=== PATIENT | female | born 1945 | race Two or more races ===

== ENCOUNTER 2021-12-29 11:49 | Emergency (ER) | payer OTHER ==
[~2021-12-29] VITALS: Ht 157.5 cm; Wt 124.3 kg
[2021-12-29 14:28] LABS: Basophils # (auto) 0 10 ^3/uL (0-0.2); Basophils % (auto) 0.8 % (0.0-2.0); Eosinophils # (auto) 0 10 ^3/uL (0-0.8); Eosinophils % (auto) 0.2 % (0.0-7.0); Hematocrit 30.8 % (36.0-46.0); Hemoglobin 10.1 g/dL (12.2-16.2); Lymphocytes # (auto) 0.7 10 ^3/uL (0.4-5.4); Lymphocytes % (auto) 12.3 % (10.0-50.0); Mean Corpuscular Hemoglobin 28.7 pg (28.0-32.0); Mean Corpuscular Hgb Conc. 32.7 g/dL (32.0-36.0); Mean Corpuscular Volume 87.6 fL (80.0-100.0); Monocytes # (auto) 0.3 10 ^3/uL (0-1.3); Monocytes % (auto) 5.1 % (0.0-12.0); Neutrophils # (auto) 4.8 10 ^3/uL (1.6-8.6); Neutrophils % (auto) 81.6 % (37.0-80.0); Nucleated Red Blood Cells % 0.1 %; Red Blood Cells 3.51 10^6/uL (4.0-5.20); White Blood Cell 5.8 10^3/uL (4.4-10.8)
[2021-12-29] MEDS ORDERED: cloNIDine HCL 0.1 MG TAB PO ONE (15:00)
[2021-12-29 15:09] LABS: Albumin 2.3 g/dL (3.4-5.0); Calcium 8.3 mg/dL (8.5-10.1); Potassium 5.4 mmol/L (3.5-5.1)
[2021-12-29 15:15] LABS: Bilirubin, Total 0.4 mg/dL (0.2-1.0); Total Protein 6.1 g/dL (6.4-8.2)
[2021-12-29 15:18] VITALS: BP 187/56
[2021-12-29] MEDS ORDERED: ENOXAPARIN SOD 120 MG/0.8 ML SYRINGE SC ONE (16:00)
[2021-12-29] MEDS: ALBUTEROL SULF 2.5 MG/0.5ML(0.5%) NEB SOLN NEB ONE ×2 (16:12→16:33)
[2021-12-29] MEDS ORDERED: DEXTROSE (50%) 50ML SYRG IV ONE (16:15)
[2021-12-29] MEDS ORDERED: SODIUM ZIRCONIUM CYCL 10 GM PAK PO ONE (16:15)
[2021-12-29] MEDS ORDERED: InsuLIN REG 1unit/0.01ml Soln (100units/ml) IV ONE (16:15)
[2021-12-29] MEDS ORDERED: CALCIUM GLUC 1,000mg/50ml-NS 50 ML IV ONE (16:15)
[2021-12-29] MEDS ORDERED: FUROSEMIDE 20 MG/2 ML VIAL IV ONE (16:15)
[2021-12-29] MEDS ORDERED: SODIUM BICARBONATE 8.4% INJ 50ML SYRINGE IV ONE (16:15)
== END 2021-12-29 16:20 | disposition left against medical advice (07) ==
LOC: ER 11:49
DX: I10 Essential (primary) hypertension (principal); R77.8 Other specified abnormalities of plasma proteins; E87.5 Hyperkalemia; E43 Unspecified severe protein-calorie malnutrition; Z68.43 Body mass index [BMI] 50.0-59.9, adult; E11.9 Type 2 diabetes mellitus without complications
CPT/HCPCS: 36415; 71045; 80053; 84484; 85025; 93005

== ENCOUNTER 2025-07-02 20:14 | Inpatient (IN) | payer OTHER ==
[~2025-07-02] VITALS: Ht 152.4 cm; Wt 113.0 kg
--- NOTE | 2025-07-02 20:47 | ED.PDOC ---
GI ASSESSMENT HPI Comments Patient is a severely morbidly obese 80 year old female ARNOLDA presenting to the ED with chief complaint of GI bleed. Patient reports that she started to experience blood in her stools with associated rectal bleeding since a few hours ago today. EMS relays that the patient was found to be hypoglycemic on scene at 49, but when given oral glucose it improved to 79. Patient's BG is now 61 in the ED. Patient denies any abdominal pain, dizziness, fever, chills, N/V/D, headache, or chest pain. Patient appears to be in poor overall health and has a history of significant COPD. Patient utilizes 2-4 L of O2 at home. Chief Complaint: GI Bleed Time Seen by MD: 20:45 Primary Care Provider: BERTHA Reviewed Notes: Nurses Notes, Swaging Machine Operator Notes, Medications, Allergies Allergies: Coded Allergies: Codeine (Verified Allergy, Unknown, 12/29/21) Lisinopril (Verified Allergy, Unknown, 12/29/21) Information Source: Patient, Emergency Med Personnel Mode of Arrival: EMS Timing: Hours Duration: Since onset Prehospital treatment: None Quality: None Vomitus: None Stool: Blood Streaked Severity: Moderate Recent: None Recent Hx of: None Pain Location: None Modifying Factors: Nothing Associated sign and symptoms: Blood in Stool Past Medical History PAST MEDICAL HISTORY: CHF, COPD, DM, ESRD, HTN Surgical History: Denies all surgeries ACQUISITIONS LOGISTICS ANALYST History: No Pertinent ACQUISITIONS LOGISTICS ANALYST History Family History Family History: Reviewed,noncontributory to illness Social History Smoker: Non-Smoker Alcohol: Denies ETOH Use Drugs: Denies Drug Use Lives In: Home Constitutional: denies: chills, diaphoresis, fatigue, fever, malaise, sweats, weakness, others EENTM: denies: blurred vision, double vision, ear bleeding, ear discharge, ear drainage, ear pain, ear ringing, eye pain, eye redness, hearing loss, mouth pain, mouth swelling, nasal discharge, nose bleeding, nose congestion, nose pain, photophobia, tearing, throat pain, throat swelling, voice changes, others Respiratory: reports: shortness of breath; denies: cough, hemoptysis, orthopnea, SOB at rest, SOB with excertion, stridor, wheezing, others Cardiovascular: denies: chest pain, dizzy spells, diaphoresis, Dyspnea on exert ion, edema, irregular heart beat, left arm pain, lightheadedness, palpitations, PND, syncope, others Gastrointestinal: reports: blood streaked bowels, rectal bleeding; denies: abdomen distended, abdominal pain, constipated, diarrhea, dysphagia, difficulty swallowing, hematemesis, melena, nausea, poor appetite, poor fluid intake, rectal pain, vomiting, others Genitourinary: denies: abnormal vagina bleeding, burning, dyspareunia, dysuria, flank pain, frequency, hematuria, incontinence, pain, , vagina discharge, urgency, others Neurological: denies: dizziness, fainting, headache, left sided numbness, left sided weakness, numbness, paresthesia, pre-existing deficit, right sided numbness, right sided weakness, seizure, speech problems, tingling, tremors, weakness, others Musculoskeletal: denies: back pain, gout, joint pain, joint swelling, muscle pain, muscle stiffness, neck pain, others Integumetry: denies: bruises, change in color, change in hair/nails, dryness, laceration, lesions, lumps, rash, wounds, others Allergic/Immunocompromised: denies: Difficulty Healing, Frequent Infections, Hives, Itching, others Hematologic/Lymphatic: denies: anemia, blood clots, easy bleeding, easy bruising, swollen glands, others Endocrine: denies: excessive hunger, excessive sweating, excessive thirst, excessive urination, flushing, intolerance to cold, intolerance to heat, unexplained weight gain, unexplained weight loss, others Psychiatric: denies: anxiety, bipolar disorder, depression, hopeless, panic disorder, schizophrenia, sleepless, suicidal, others All Other Systems: Reviewed and Negative Physical Exam General Appearance: Moderate Distress (Xdys-ne-ivmmwngk distress due to some shortness a breath and anxiety related to her rectal bleeding concerns. Patient denied any definitive pain.), Obese HEENT: Normal ENT Inspection, Pharynx Normal, TMs Normal Neck: Full Range of Motion, Non-Tender, Normal, Normal Inspection Respiratory: Chest Non-Tender, Other (Patchy rhonchi appreciated globally throughout bilateral lung rondon.) Cardiovascular: No JVD, No Murmur, Normal Peripheral Pulses, Regular Rate/Rhythm Breast Exam: Deferred Gastrointestinal: Non Tender, Other (No definitive pain on palpation. Difficult to assess due to body habitus.) Genitalia: Deferred Pelvic: Deferred Rectal: Deferred Extremities: Other (Bilateral 3+ pitting edema noted on lower extremities.) Neurologic: Alert Cerebellar Function: NOT DONE Reflexes: NOT DONE Skin: Dry, Normal Color, Warm Lymphatic: No Adenopathy Was a procedure done? Was a procedure done?: No GI differential Dx Differential Diagnosis: Other (Sepsis, electrolyte abnormality, CHF, COPD, rectal bleed, anemia, GI bleed) X-Ray, Labs, Meds, VS Vital Signs Date Time Temp Pulse Resp B/P (MAP) Pulse Ox O2 Delivery O2 Flow Rate FiO2 07/03/25 01:18 98.5 62 20 152/31 (71) 98 98.5 07/02/25 22:30 98.5 62 21 147/35 (72) 93 98.5 07/02/25 22:25 147/35 07/02/25 20:54 98.9 62 22 168/44 (85) 95 98.9 07/02/25 20:54 22 95 Nasal Cannula* 3 32 07/02/25 20:16 97.6 86 16 133/72 98 97.6 Lab Test 07/03/25 00:04 07/02/25 21:45 07/02/25 20:50 Range/Units POC Glucose 94 70-106 mg/dl Troponin I High Sensitivity 14 14 </=34 ng/L White Blood Count 7.7 4.4-10.8 10^3/uL Red Blood Count 2.55 L 4.0-5.20 10^6/uL Hemoglobin 7.9 L 12.2-16.2 g/dL Hematocrit 25.0 L 36.0-46.0 % Mean Corpuscular Volume 98.1 80.0-100.0 fL Mean Corpuscular Hemoglobin 31.1 28.0-32.0 pg Mean Corpuscular Hemoglobin Concent 31.7 L 32.0-36.0 g/dL Red Cell Distribution Width 16.4 H 11.8-14.3 % Platelet Count 227 140-450 10^3/uL Mean Platelet Volume 9.2 6.9-10.8 fL Neutrophils (%) (Auto) 84.5 H 37.0-80.0 % Lymphocytes (%) (Auto) 3.2 L 10.0-50.0 % Monocytes (%) (Auto) 7.2 0.0-12.0 % Eosinophils (%) (Auto) 4.6 0.0-7.0 % Basophils (%) (Auto) 0.5 0.0-2.0 % Neutrophils # (Auto) 6.5 1.6-8.6 10 ^3/uL Lymphocytes # (Auto) 0.2 L 0.4-5.4 10 ^3/uL Monocytes # (Auto) 0.6 0-1.3 10 ^3/uL Eosinophils # (Auto) 0.4 0-0.8 10 ^3/uL Basophils # (Auto) 0 0-0.2 10 ^3/uL Nucleated Red Blood Cells 0.0 % Prothrombin Time 11.9 H 9.3-11.8 sec Prothrombin Time INR 1.14 0.9-1.15 Activated Partial Thromboplast Time 29.3 24.5-34.5 SEC D-Dimer, Quantitative 3.98 H 0.0-0.49 mg/L FEU Sodium Level 144 136-145 mmol/L Potassium Level 4.1 3.5-5.1 mmol/L Chloride Level 102 98-107 mmol/L Carbon Dioxide Level 32 H 20-31 mmol/L Anion Gap 10 5-15 Blood Urea Nitrogen 59 H 9-23 mg/dL Creatinine 2.15 H 0.550-1.02 mg/dL Glomerular Filtration Rate Calc 23 >90 mL/min BUN/Creatinine Ratio 27.4 H 10.0-20.0 Serum Glucose 105 74-106 mg/dL Calcium Level 8.3 L 8.7-10.4 mg/dL B-Type Natriuretic Peptide 597.56 0-100 pg/mL Current Medications Medications (Trade) Dose Ordered Sig/Fawad Route Start Time Stop Time Status Last Admin Dextrose/Sodium Chloride 1,000 ml @ 150 mls/hr Q6H40M ONCE IV 07/02/25 20:30 07/03/25 03:09 07/02/25 22:25 Furosemide (Lasix Injection) 40 mg ONCE ONCE IV 07/02/25 22:15 07/02/25 22:16 DC 07/02/25 22:25 X-Ray, Labs, Meds, VS Comment All available studies were evaluated by me personally. Serum laboratories revealed a significant anemia, what appears to be acute on chronic renal c oncerns as well as a CHF exacerbation. Urine was pending at time of this note. This patient is a [facility] patient and therefore, [facility] will be contacted for transfer to their facility for inpatient evaluation and management. Spoke with the Dr. [place] at [facility] and advised him of initial patient complaint as well as EMS discussions related to blood sugar, imaging and laboratory fi ndings. He agreed to accept the patient is a transfer. Authorization number [id number]. [facility] returned the call to this facility due to capacity concerns at all other sites. They asked if we could accept the patient. We agreed to manage the patient. Time of 1ST Reevaluation: 22:15 Reevaluation 1ST: Improved Consultation: PCP Patient Education/Counseling: Diagnosis, Treatment Family Education/Counseling: Diagnosis, Treatment, No Family Present SEPSIS Sepsis Screen Date sepsis recognized/suspect: Jul 02, 2025 Time Sepsis recognized/suspect: 2015 Recent Procedure: No On Antibiotic Therapy: No Respiratory Rate >20: No Heart Rate >90: No Temp<36 C (96.8 F) or >38.3 C: No SBP <90 or MAP <65 mmHG: No New Acute Mental Status Change: No Is the patient on CPAP, BIPAP,: No Physician Orders Urinalysis (07/02/25 20:25) Heplock Iv (07/02/25 20:25) Electrocardigram (07/02/25 20:25) D5w/Sod Chl 0.45% (D5w 1/2ns) (07/02/25 20:30) Insert Lawrence Catheter QSHIFT (07/02/25 22:09) Imaging Transfer Request (07/02/25 22:27) Vital Signs Date Time Temp Pulse Resp B/P (MAP) Pulse Ox O2 Delivery O2 Flow Rate FiO2 07/03/25 01:18 98.5 62 20 152/31 (71) 98 98.5 07/02/25 22:30 98.5 62 21 147/35 (72) 93 98.5 07/02/25 22:25 147/35 07/02/25 20:54 98.9 62 22 168/44 (85) 95 98.9 07/02/25 20:54 22 95 Nasal Cannula* 3 32 07/02/25 20:16 97.6 86 16 133/72 98 97.6 Laboratory Tests Test 07/02/25 20:50 White Blood Count 7.7 10^3/uL (4.4-10.8) Medications Medications Dose Ordered Sig/Fawad Route Start Time Stop Time Status Last Admin Dose Admin Dextrose/Sodium Chloride 1,000 ml @ 150 mls/hr Q6H40M ONCE IV 07/02/25 20:30 07/03/25 03:09 07/02/25 22:25 Furosemide 40 mg ONCE ONCE IV 07/02/25 22:15 07/02/25 22:16 DC 07/02/25 22:25 Departure 1 Departure Time of Disposition: 22:15 Impression: Primary Impression: Rectal bleed Additional Impressions: Anemia Acute exacerbation of CHF (congestive heart failure) Ctdxj-fs-wzqontf kidney injury Disposition: 02 SHORT TERM HOSPITAL Condition: Fair Discharged With: Self Critical Care Note Critical Care Time?: No Stability Stability form required: No Heart Score Heart Score: Heart Score Response (Comments) Value History N/A 0 EKG N/A 0 Age N/A 0 Risk Factors N/A 0 Troponin N/A 0 Total 0 I personally scribed for RENATE LAM PAC ([email or web address]) on 07/02/25 at 20:47. Electronically submitted by Kai Adan ([email or web address]). RENATE LAM PAC Jul 02, 2025 20:47
[2025-07-02 20:54] VITALS: RESP 22; O2SAT 95
[2025-07-02 21:12] LABS: Hemoglobin 7.9 g/dL (12.2-16.2)
[2025-07-02 21:14] LABS: Hematocrit 25.0 % (36.0-46.0); Mean Corpuscular Hemoglobin 31.1 pg (28.0-32.0); Mean Corpuscular Volume 98.1 fL (80.0-100.0); Nucleated Red Blood Cells % 0.0 %
[2025-07-02 21:16] LABS: Chloride 102 mmol/L (98-107); Potassium 4.1 mmol/L (3.5-5.1); Sodium 144 mmol/L (136-145)
[2025-07-02 21:17] LABS: Anion Gap 10 (5-15)
[2025-07-02 21:22] LABS: Glucose 105 mg/dL (74-106)
[2025-07-02 21:23] LABS: BUN/Creatinine Ratio 27.4 (10.0-20.0)
[2025-07-02 21:30] LABS: Blood Urea Nitrogen 59 mg/dL (9-23); Calcium 8.3 mg/dL (8.7-10.4); Carbon Dioxide 32 mmol/L (20-31)
[2025-07-02 21:46] LABS: INR 1.14 (0.9-1.15); Partial Thromboplastin Time 29.3 SEC (24.5-34.5); Prothrombin Time 11.9 sec (9.3-11.8)
[2025-07-02] MEDS: D5W/SOD CHL 0.45% 1,000 ML IV ONE (22:25)
[2025-07-02] MEDS: FUROSEMIDE 40 MG/4 ML VIAL IV ONE (22:25)
[2025-07-03] VITALS (22 sets, daily range): BP systolic 98–166; BP diastolic 29–47; PULSE 58–72; RESP 11–28; TEMP 97.6–98.5; O2SAT 84–100
[2025-07-03] MEDS ORDERED: ONDANSETRON HCL 4 MG/2 ML VIAL IV PRN (02:30)
[2025-07-03] MEDS ORDERED: ALBUTEROL SULF 2.5 MG/0.5ML(0.5%) NEB SOLN NEB PRN (02:30)
[2025-07-03] MEDS ORDERED: DOCUSATE SOD 100 MG CAP PO PRN (02:30)
[2025-07-03] MEDS ORDERED: ACETAMINOPHEN 325 MG TAB PO PRN (02:30)
[2025-07-03] MEDS ORDERED: DEXTROSE (50%) 50ML SYRG IV PRN (02:30)
[2025-07-03] MEDS ORDERED: IPRATROPIUM BROM 0.5 MG/2.5ML INH SOL NEB PRN (02:30)
[2025-07-03 03:33] LABS: Hematocrit 19.7 % (36.0-46.0); Mean Corpuscular Hemoglobin 30.5 pg (28.0-32.0); Mean Corpuscular Volume 100.0 fL (80.0-100.0); Nucleated Red Blood Cells % 0.0 %
[2025-07-03 03:44] LABS: Hemoglobin 6.0 g/dL (12.2-16.2)
--- NOTE | 2025-07-03 03:49 | DVHHP2 ---
History of Present Illness Reason for Visit: Rectal bleed History of Present Illness The patient is a 80-year-old female with past medical history of COPD, CHF, diabetes mellitus, end-stage renal disease, and hypertension who presented to [facility] ED with complaint of GI bleed. Patient reports that she started to experience blood in her stools with associated rectal bleeding few hours ago today. Patient was seen and evaluated in the ED, laboratory data shows WBC 7.7, hemoglobin 7.9, hematocrit 23.0, platelets 227, sodium 144, potassium 4.1, BUN 59, creatinine 2.15, glucose 105, calcium 8.3, troponin 14, BNP 597.56, D-dimer 3.98, blood pressure 152/35, heart rate 62, temperature 98.5 F, O2 saturation 98% on oxygen. Please see medication orders section in the computer. On my assessment, patient denied chest pain, no headache, dizziness, diaphoresis, shortness of breath, no abdominal pain, diarrhea, nausea, vomiting, fever, no chills. Patient was admitted for further evaluation and medical management. Past Medical History CHF, COPD, DM, ESRD, HTN Past Surgical History Denies all surgeries Family History Reviewed, noncontributory to the management of this case. Past Social History The patient lives at home, denies smoking, alcohol or illicit drugs abuse. Review of Systems Constitutional: Yes: Weakness; No: Fever, Chills, Sweats, Malaise, Other Eyes: No: Pain, Vision change, Conjunctivae inflammation, Eyelid inflammation, Other, Redness ENT: No: Ear pain, Ear discharge, Nose pain, Nose discharge, Nose congestion, Mouth pain, Mouth swelling, Throat pain, Throat swelling, Other Respiratory: Shortness of breath; No: Cough, Dry, SOB with excertion, Wheezing, Hemoptysis, Pleuritic Pain, Sputum, Wheezing, Other Cardiovascular: No: Chest Pain, Palpitations, Orthopnea, Paroxysmal Noc. Dyspnea, Edema, Lt Headedness, Other Gastrointestinal: Melena, Other (Blood streak bowel, rectal bleeding); No: Nausea, Vomiting, Abdominal Pain, Diarrhea, Constipation, Hematochezia Genitourinary: No Dysuria, No Frequency, No Incontinence, No Hematuria, No Retention, No Other Musculoskeletal: No: other, neck pain, shoulder pain, arm pain, back pain, hand pain, leg pain, foot pain Skin: No: Rash, Lesions, Jaundice, Bruising, Other Neurological: No: Weakness, Numbness, Incoordination, Change in speech, Confusion, Seizures, Other Allergies: Coded Allergies: Codeine (Verified Allergy, Unknown, 12/29/21) Lisinopril (Verified Allergy, Unknown, 12/29/21) Medications Current Medications Medications Dose Ordered Sig/Fawad Route Start Time Stop Time Status Last Admin Dose Admin Furosemide 20 mg DAILY IV 07/03/25 10:00 Carvedilol 3.125 mg Q12HR PO 07/03/25 10:00 Atorvastatin Calcium 10 mg HS PO 07/03/25 22:00 Albuterol 2.5 mg Q4HPRN PRN NEB 07/03/25 02:30 Ipratropium [place] 0.5 mg Q4HPRN PRN NEB 07/03/25 02:30 Hydralazine HCl 10 mg Q6HP PRN IV 07/03/25 02:30 Diagnostic Test (Pha) 1 strip ACHS 07/03/25 07:00 Insulin Human Regular ACHS SC 07/03/25 07:00 Dextrose 50 ml UD PRN IV 07/03/25 02:30 Sodium Chloride 10 ml Q8HR IV 07/03/25 06:00 Ondansetron HCl 4 mg Q4HP PRN IV 07/03/25 02:30 Docusate Sodium 100 mg BIDPRN PRN PO 07/03/25 02:30 Acetaminophen 650 mg Q6HP PRN PO 07/03/25 02:30 Exam Vital Signs Vital Signs Date Time Temp Pulse Resp B/P (MAP) Pulse Ox O2 Delivery O2 Flow Rate FiO2 07/03/25 02:53 62 18 152/31 98 3.0 32 07/03/25 01:18 98.5 98.5 07/02/25 20:54 Nasal Cannula* General Appearance: Alert, Oriented X3, Cooperative, No acute distress HEENT: Atraumatic, PERRLA, EOMI, Mucous membr. moist/pink Respiratory: Normal air movement Cardiovascular: Regular rate, Normal S1, Normal S2, No murmurs Abdominal: Normal bowel sounds, Soft, No tenderness, No hepatospenomegaly, No masses Extremities: No clubbing, No cyanosis, No edema, Normal pulses, No tenderness/swelling Skin: No rashes, No significant lesion Neuro: Normal speech, Normal tone, Sensation intact, Cranial nerves 3-12 NL, Reflexes 2+, Other (Generalized weakness) Psych/Mental Status: Mental status NL, Mood NL Labs/Xrays Labs Test 07/03/25 03:03 07/03/25 00:04 07/02/25 21:45 07/02/25 20:50 Range/Units White Blood Count 6.3 4.4-10.8 10^3/uL Red Blood Count 1.97 L 4.0-5.20 10^6/uL Hemoglobin 6.0 #*L 12.2-16.2 g/dL Hematocrit 19.7 #L 36.0-46.0 % Mean Corpuscular Volume 100.0 80.0-100.0 fL Mean Corpuscular Hemoglobin 30.5 28.0-32.0 pg Mean Corpuscular Hemoglobin Concent 30.5 L 32.0-36.0 g/dL Red Cell Distribution Width 17.0 H 11.8-14.3 % Platelet Count 189 140-450 10^3/uL Mean Platelet Volume 9.4 6.9-10.8 fL Neutrophils (%) (Auto) 81.6 H 37.0-80.0 % Lymphocytes (%) (Auto) 5.2 L 10.0-50.0 % Monocytes (%) (Auto) 8.5 0.0-12.0 % Eosinophils (%) (Auto) 4.2 0.0-7.0 % Basophils (%) (Auto) 0.5 0.0-2.0 % Neutrophils # (Auto) 5.2 1.6-8.6 10 ^3/uL Lymphocytes # (Auto) 0.3 L 0.4-5.4 10 ^3/uL Monocytes # (Auto) 0.5 0-1.3 10 ^3/uL Eosinophils # (Auto) 0.3 0-0.8 10 ^3/uL Basophils # (Auto) 0 0-0.2 10 ^3/uL Nucleated Red Blood Cells 0.0 % POC Glucose 94 70-106 mg/dl Troponin I High Sensitivity 14 </=34 ng/L Prothrombin Time 11.9 H 9.3-11.8 sec Prothrombin Time INR 1.14 0.9-1.15 Activated Partial Thromboplast Time 29.3 24.5-34.5 SEC D-Dimer, Quantitative 3.98 H 0.0-0.49 mg/L FEU B-Type Natriuretic Peptide 597.56 0-100 pg/mL SEPSIS Sepsis Screen Date sepsis recognized/suspect: Jul 03, 2025 Time Sepsis recognized/suspect: 2053 Recent Procedure: No On Antibiotic Therapy: No Respiratory Rate >20: Yes Heart Rate >90: No Temp<36 C (96.8 F) or >38.3 C: No SBP <90 or MAP <65 mmHG: No New Acute Mental Status Change: No Is the patient on CPAP, BIPAP,: No Physician Orders Urinalysis (07/02/25 20:25) Heplock Iv (07/02/25:25) Electrocardigram (07/02/25:) Insert Lawrence Catheter QSHIFT (07/02/25 22:09) Imaging Transfer Request (07/02/25 22:27) Comprehensive Metabolic Panel (07/03/25 04:00) Furosemide Injection (Lasix Injection) (07/03/25 10:00) * Gi Dvh Metaphysicist (07/03/25 02:29) Carvedilol Tablet (Coreg Tablet) (07/03/25 10:00) Atorvastatin (Lipitor) (07/03/25 22:00) Type And Screen (07/03/25 02:29) Albuterol Medneb (Ventolin Medneb) (07/03/25 02:30) Ipratropium Medneb (Atrovent Medneb) (07/03/25 02:30) Nm Vq Scan (07/03/25 02:29) Hydralazine Injection (Apresoline Inject (07/03/25 02:30) Glucose Blood (Accu-Chek Comfort Curve T (07/03/25 07:00) Insulin R (Human) (Insulin R) (07/03/25 07:00) Dextrose 50% Syringe (07/03/25 02:30) Allergies (07/03/25 02:29) Code Status (07/03/25 02:29) Sodium Chloride Lock (Saline Lock Ns) (07/03/25 06:00) Oxygen Per Hour (07/03/25 02:29) Ondansetron Hcl (Zofran) (07/03/25 02:30) Docusate Sodium Capsule (Colace Capsule) (07/03/25 02:30) Fall Risk Precautions In Place QSHIFT (07/03/25 02:29) Complete Blood Count (07/04/25 04:00) Comprehensive Metabolic Panel (07/04/25 04:00) Condition: Serious (07/03/25 02:29) Acetaminophen Tablet (Tylenol Tablet) (07/03/25 02:30) Clear Liq Diet (07/03/25 Breakfast) Maintain Bed Rest (07/03/25 02:29) Sequential Compression Device (07/03/25 ) *Dr. Fely Gruber -Da Debra (07/03/25 03:47) Admit (07/03/25 03:47) Nitroglycerin Sublingual (Ntrostat Subli (07/03/25 04:00) Morphine Sulfate Injection (07/03/25 04:00) Stat Ekg For Chest Pain (07/03/25 03:47) Notify Md Of Changes From Base (07/03/25 03:47) Elevator Pilot For 24 Hours (07/03/25 03:47) Emergency Dysrhythmia Protocol (07/03/25 03:47) Rhythm Strips Once Every Shift (07/03/25 03:47) Oxygen By Nasal Cannula (07/03/25 03:47) Vital Signs Date Time Temp Pulse Resp B/P (MAP) Pulse Ox O2 Delivery O2 Flow Rate FiO2 07/03/25 02:53 62 18 152/31 98 3.0 32 07/03/25 01:18 98.5 62 20 152/31 (71) 98 98.5 07/02/25 22:30 98.5 62 21 147/35 (72) 93 98.5 07/02/25 22:25 147/35 07/02/25 20:54 98.9 62 22 168/44 (85) 95 98.9 07/02/25 20:54 22 95 Nasal Cannula* 3 32 07/02/25 20:16 97.6 86 16 133/72 98 97.6 Laboratory Tests Test 07/02/25 20:50 07/03/25 03:03 White Blood Count 7.7 10^3/uL (4.4-10.8) 6.3 10^3/uL (4.4-10.8) Medications Medications Dose Ordered Sig/Fawad Route Start Time Stop Time Status Last Admin Dose Admin Dextrose/Sodium Chloride 1,000 ml @ 150 mls/hr Q6H40M ONCE IV 07/02/25 20:30 07/03/25 03:09 DC 07/02/25 22:25 150 MLS/HR Furosemide 40 mg ONCE ONCE IV 07/02/25 22:15 07/02/25 22:16 DC 07/02/25 22:25 40 MG Assessment/Plan Assessment/Plan Rectal bleed COPD with acute exacerbation Elevated D-dimer Blood loss anemia Jwkkd-hc-[id number] kidney injury Acute exacerbation of congestive heart failure Plan 1. Admit to telemetry unit 2. Breathing treatment 3. Pain control management 4. Management of fluids and electrolytes 5. Consultation for GI/nephrology 6. Diagnostic tests chest x-ray 7. DVT prophylaxis-on SCDs 8. Repeat labs CBC, CMP in a.m. 9. Continue with current medical management 10. Treatment plan discussed with patient and RN. Patient verbalized understanding. Plan discussed with: Patient, Other (RN) My Orders Orders - ELDER VIVAR DNP Procedure Category Date Status Time Comprehensive LAB 07/03/25 In Process Metabolic Panel 04:00 Furosemide Injection PHA 07/03/25 In Process (Lasix Injection) 10:00 * Gi Dvh Metaphysicist CONS 07/03/25 Transmitted 02:29 Carvedilol Tablet PHA 07/03/25 In Process (Coreg Tablet) 10:00 Atorvastatin (Lipitor) PHA 07/03/25 In Process 22:00 Type And Screen BBK 07/03/25 In Process 02:29 Albuterol Medneb PHA 07/03/25 In Process (Ventolin Medneb) 02:30 Ipratropium Medneb PHA 07/03/25 In Process (Atrovent Medneb) 02:30 Nm Vq Scan NM 07/03/25 Logged 02:29 Hydralazine Injection PHA 07/03/25 In Process (Apresoline Inject 02:30 Glucose Blood PHA 07/03/25 In Process (Accu-Chek Comfort 07:00 Insulin R (Human) PHA 07/03/25 In Process (Insulin R) 07:00 Dextrose 50% Syringe PHA 07/03/25 In Process 02:30 Allergies PARVEEN 07/03/25 In Process 02:29 Code Status CODE 07/03/25 Transmitted 02:29 Sodium Chloride Lock PHA 07/03/25 In Process (Saline Lock Ns) 06:00 Oxygen Per Hour RT 07/03/25 Transmitted 02:29 Ondansetron Hcl PHA 07/03/25 In Process (Zofran) 02:30 Docusate Sodium PHA 07/03/25 In Process Capsule (Colace 02:30 Fall Risk Precautions PARVEEN 07/03/[address] 02:29 Complete Blood Count LAB 07/04/25 Verified 04:00 Comprehensive LAB 07/04/25 Verified Metabolic Panel 04:00 Condition: Serious PARVEEN 07/03/25 In Process 02:29 Acetaminophen Tablet PHA 07/03/25 In Process (Tylenol Tablet) 02:30 Clear Liq Diet DIET 07/03/25 Transmitted Breakfast Maintain Bed Rest PARVEEN 07/03/25 In Process 02:29 Sequential PARVEEN 07/03/25 In Process Compression Device *Dr. Fely Gruber -Da CONS 07/03/25 Verified Debra 03:47 Admit ADMIT 07/03/25 Verified 03:47 Nitroglycerin [facility] 07/03/25 Verified Sublingual (Ntrostat 04:00 Morphine Sulfate PHA 07/03/25 Verified Injection 04:00 Stat Ekg For Chest [facility] 07/03/25 Verified Pain 03:47 Notify Md Of Changes [facility] 07/03/25 Verified From Base 03:47 Elevator Pilot For [facility] 07/03/25 Verified 24 Hours 03:47 Emergency Dysrhythmia [facility] 07/03/25 Verified Protocol 03:47 Rhythm Strips Once [facility] 07/03/25 Verified Every Shift 03:47 Oxygen By Nasal RT 07/03/25 Verified Cannula 03:47 Problem List: (1) Rectal bleed (2) COPD with acute exacerbation (3) Elevated d-dimer (4) Blood loss anemia (5) Wefwb-ju-lhlfgco kidney injury (6) Acute exacerbation of congestive heart failure Date of Service: Jul 03, 2025 Billing Provider: ELDER VIVAR DNP Common Visit Codes: [id number] INP/OBS CARE (HIGH) ELDER VIVAR DNP Jul 03, 2025 03:49
[2025-07-03 03:58] LABS: Alkaline Phosphatase 68 U/L (46-116); Anion Gap 9 (5-15); BUN/Creatinine Ratio 24.8 (10.0-20.0); Chloride 104 mmol/L (98-107); Potassium 3.9 mmol/L (3.5-5.1); Sodium 145 mmol/L (136-145)
[2025-07-03] MEDS ORDERED: MORPHINE SULFATE INJ 2 MG/ml SYRG IV PRN (04:00)
[2025-07-03] MEDS ORDERED: NITROGLYCERIN 0.4 MG SL TAB SL PRN (04:00)
[2025-07-03 04:23] LABS: Alanine Aminotransferase < 9 U/L (7-40); Albumin 2.6 g/dL (3.2-4.8); Bilirubin, Total 0.2 mg/dL (0.2-1.0); Blood Urea Nitrogen 50 mg/dL (9-23); Calcium 7.6 mg/dL (8.7-10.4); Carbon Dioxide 32 mmol/L (20-31); Glucose 115 mg/dL (74-106); Total Protein 5.1 g/dL (5.7-8.2)
[2025-07-03 05:05] LABS: Urine Protein, UAD 1+ (Negative)
[2025-07-03] MEDS: SODIUM CHLOR 0.9% PF (SALINE LOCK) 10ML VIAL/SYR IV SCH (06:00)
[2025-07-03] MEDS: InsuLIN REG 1unit/0.01ml Soln (100units/ml) SC SCH (07:00)
[2025-07-03] MEDS: ACCU-CHEK COMFORT CURVE STRIP VI SCH (07:19)
--- NOTE | 2025-07-03 07:54 | DVH ---
INDICATION: SHORTNESS OF BREATH TECHNIQUE: Frontal view of the chest. COMPARISON: CHEST PORTABLE on DOS: 12/29/21, CXRP on DOS: 12/29/21 FINDINGS: Cardiomegaly . There is no evidence of pleural disease. Increased interstitial opacites . The bon y structures of the chest are intact without fracture. IMPRESSION: 1. Cardiomegaly with CHF. Small bilateral effusions
[2025-07-03] MEDS: FUROSEMIDE 20 MG/2 ML VIAL IV SCH (10:32)
[2025-07-03] MEDS: CARVEDILOL 3.125 MG TAB PO SCH (10:32)
[2025-07-03 11:29] LABS: Hematocrit 20.7 % (36.0-46.0)
[2025-07-03 11:33] LABS: Hemoglobin 6.6 g/dL (12.2-16.2)
--- NOTE | 2025-07-03 14:47 | DVHINCON2 ---
GI Consult Consult Note GI consult note Date of Consultation: 07/03/2025 Chief Complaint: GI bleed Referring Physician: Chelsey DODSON H&P: 8-year-old female with past medical history of COPD, CHF, diabetes mellitus, end-stage renal disease, hypertension admitted with rectal bleeding, which started one day ago. Patient and daughter at bedside giving history of patient mostly passing clots in her bowel. Denies abdominal pain, nausea vomiting, hematemesis. No EGD or colonoscopy in past Denies blood thinners Past Medical History: CHF, COPD, DM, ESRD, HTN Past Surgical History: denies Social History: NO smoking, drinking ETOH and use of illegal drugs. Family History: Noncontributory Review of Systems: Constitutional: no fever, chill, weight loss HEENT: no eye pain, no hearing loss, no oral lesion, no scleral icterus Heart: no chest pain, no chest pressure Lung: no cough, no dyspnea with exertion Abdomen: see HPI Physical exam: General: NAD, AAOX3 Chest: lung rondon clear to auscultation Heart: RRR, no murmur Abdomen: non-distended, no tenderness to palpation, +BS Labs: Labs Test 07/03/25 12:15 07/03/25 11:00 07/03/25 04:00 07/03/25 03:03 Range/Units POC Glucose 120 H 70-106 mg/dl Hemoglobin 6.6 *L 12.2-16.2 g/dL Hematocrit 20.7 L 36.0-46.0 % Urine Color Colorless Yellow Urine Clarity Turbid H Clear Urine pH 6.0 5.0-9.0 Urine Specific Home 1.009 1.001-1.035 Urine Protein 1+ H Negative Urine Ketones Negative Negative Urine Blood 2+ H Negative /uL Urine Nitrite Negative Negative Urine Bilirubin Negative Negative Urine Urobilinogen Normal Negative mg/dL Urine Leukocyte Esterase 2+ Negative /uL Urine RBC 5 0 - 4 /hpf Urine Microscopic WBC 26 H 0-5 /HPF Urine Squamous Epithelial Cells None seen <5 /hpf Urine Bacteria Mod H None Seen /hpf Urine Glucose Normal Normal mg/dL White Blood Count 6.3 4.4-10.8 10^3/uL Red Blood Count 1.97 L 4.0-5.20 10^6/uL Mean Corpuscular Volume 100.0 80.0-100.0 fL Mean Corpuscular Hemoglobin 30.5 28.0-32.0 pg Mean Corpuscular Hemoglobin Concent 30.5 L 32.0-36.0 g/dL Red Cell Distribution Width 17.0 H 11.8-14.3 % Platelet Count 189 140-450 10^3/uL Mean Platelet Volume 9.4 6.9-10.8 fL Neutrophils (%) (Auto) 81.6 H 37.0-80.0 % Lymphocytes (%) (Auto) 5.2 L 10.0-50.0 % Monocytes (%) (Auto) 8.5 0.0-12.0 % Eosinophils (%) (Auto) 4.2 0.0-7.0 % Basophils (%) (Auto) 0.5 0.0-2.0 % Neutrophils # (Auto) 5.2 1.6-8.6 10 ^3/uL Lymphocytes # (Auto) 0.3 L 0.4-5.4 10 ^3/uL Monocytes # (Auto) 0.5 0-1.3 10 ^3/uL Eosinophils # (Auto) 0.3 0-0.8 10 ^3/uL Basophils # (Auto) 0 0-0.2 10 ^3/uL Nucleated Red Blood Cells 0.0 % Sodium Level 145 136-145 mmol/L Potassium Level 3.9 3.5-5.1 mmol/L Chloride Level 104 98-107 mmol/L Carbon Dioxide Level 32 H 20-31 mmol/L Anion Gap 9 5-15 Blood Urea Nitrogen 50 H 9-23 mg/dL Creatinine 2.02 H 0.550-1.02 mg/dL Glomerular Filtration Rate Calc 25 >90 mL/min BUN/Creatinine Ratio 24.8 H 10.0-20.0 Serum Glucose 115 H 74-106 mg/dL Calcium Level 7.6 L 8.7-10.4 mg/dL Total Bilirubin 0.2 0.2-1.0 mg/dL Aspartate Amino Transferase (AST) 14 13-40 U/L Alanine Aminotransferase (ALT) < 9 7-40 U/L Alkaline Phosphatase 68 46-116 U/L Total Protein 5.1 L 5.7-8.2 g/dL Albumin 2.6 L 3.2-4.8 g/dL Test 07/02/25 21:45 07/02/25 20:50 Range/Units Troponin I High Sensitivity 14 </=34 ng/L Prothrombin Time 11.9 H 9.3-11.8 sec Prothrombin Time INR 1.14 0.9-1.15 Activated Partial Thromboplast Time 29.3 24.5-34.5 SEC D-Dimer, Quantitative 3.98 H 0.0-0.49 mg/L FEU B-Type Natriuretic Peptide 597.56 0-100 pg/mL Imaging: Assessment: Rectal bleed Severe anemia Acute on chronic kidney injury Plan: Discussed with Dr. Villalobos Transfuse one more unit of PRBCs Monitor labs Ice chips only Patient and daughter at bedside would like patient to be transferred back to [facility], but explained to them that patient is not stable at this time to be transferred We will continue to follow patient Discussed plan with patient's daughter and RN Thank you for this consult Date of Service: Jul 03, 2025 Billing Provider: NORA GHOSH Common Visit Codes: CONSULT ONLY Consultation Codes: [id number] CONSULT <60MIN NORA GHOSH Jul 03, 2025 14:47
--- NOTE | 2025-07-03 15:09 | DVH ---
CLINICAL INFORMATION: 80 years old, Female; PULMONARY EMBOLISM. TECHNIQUE: 4.4 mCi of Xenon-133 gas was used for the ventilation portion of the exam. Posterior vent ilation imaging was obtained. 3.5 mCi of technetium 99m MAA was used for the perfusion portion of the exam. Imaging was obtained in multiple planes of projection. COMPARISON: XY CHEST PORTABLE on DOS: 07/03/25, CHEST PORTABLE on DOS: 12/29/21, CXRP on DOS: 12/29/21 FINDINGS: There is matching perfusion and ventilation defect in the left lower lung due to cardiomega ly and likely pleural effusion. No mismatched perfusion defect identified to suggest pulmonary embolism. IMPRESSION: Low probability of pulmonary embolism (less than 20% probability).
[2025-07-03] MEDS: OCTREOTIDE ACETATE 100 MCG in SODIUM CHL 0.9% 50 ML IV ONE (16:09)
[2025-07-03] MEDS: OCTREOTIDE ACETATE 500 MCG in SODIUM CHL 0.9% 99 ML IV SCH (16:38)
--- NOTE | 2025-07-03 18:31 | DVHINCON2 ---
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 Lawrence catheter has been placed, and she is making good urine. Labs significant for Cr: 2.15 mg/dlm aLb: 2.6 g/dl, and Hb was as low as 6.0 mg/dl, after PRBC transfusion it is up to 6.6 g/dl. CXR shows pulmonary congestion, and small bilateral pleural effusion. V/Q scan is low probability for PE. Nephrology consulted for KAREN on CKD Past Medical History CKD IV CHF Allergies: Coded Allergies: Codeine (Verified Allergy, Unknown, 12/29/21) Lisinopril (Verified Allergy, Unknown, 12/29/21) Current Medications Current Medications Medications (Trade) Dose Ordered Sig/Fawad Route PRN Reason Start Time Stop Time Status Last Admin Furosemide (Lasix Injection) 20 mg DAILY IV 07/03/25 10:00 Carvedilol (Coreg Tablet) 3.125 mg Q12HR PO 07/03/25 10:00 Atorvastatin Calcium (Lipitor) 10 mg HS PO 07/03/25 22:00 Albuterol (Ventolin Medneb) 2.5 mg Q4HPRN PRN NEB SHORTNESS OF BREATH 07/03/25 02:30 Ipratropium [place] (Atrovent Medneb) 0.5 mg Q4HPRN PRN NEB SHORTNESS OF BREATH 07/03/25 02:30 Hydralazine HCl (Apresoline Injection) 10 mg Q6HP PRN IV SBP>150 07/03/25 02:30 Diagnostic Test (Pha) (Accu-Chek Comfort Curve T) 1 strip ACHS 07/03/25 07:00 07/03/25 12:19 Insulin Human Regular (InsuLIN R) ACHS SC 07/03/25 07:00 Dextrose 50 ml UD PRN IV Blood Sugar LESS THAN 60 07/03/25 02:30 Sodium Chloride (Saline Lock Ns) 10 ml Q8HR IV 07/03/25 06:00 07/03/25 14:19 Ondansetron HCl (Zofran) 4 mg Q4HP PRN IV NAUSEA / VOMITING 07/03/25 02:30 Docusate Sodium (Colace Capsule) 100 mg BIDPRN PRN PO FOR CONSTIPATION 07/03/25 02:30 Acetaminophen (Tylenol Tablet) 650 mg Q6HP PRN PO PAIN SCALE 1-3 OR TEMP>100.4 07/03/25 02:30 Nitroglycerin (Ntrostat Sublingual) 0.4 mg Q5MINP PRN SL FOR CHEST PAIN 07/03/25 04:00 Morphine Sulfate 2 mg Q30M PRN IV FOR CHEST PAIN 07/03/25 04:00 Pantoprazole Sodium (Protonix) 40 mg BID IV 07/03/25 22:00 Octreotide Acetate 500 mcg/ Sodium Chloride 100 ml @ 10 mls/hr Q10H IV 07/03/25 14:45 07/03/25 16:38 Review of Systems As per HPI ,all other systems were reviewed and are negative. H&P Exam Vital Signs/I&O Vital Sign Date Time Temp Pulse Resp B/P (MAP) Pulse Ox O2 Delivery O2 Flow Rate FiO2 07/03/25 15:34 97.7 66 16 144/34 97.7 07/03/25 07:30 100 07/03/25 07:30 Nasal Cannula* 4 36 Intake and Output 07/02/25 07/03/25 19:00 07:00 Intake Total 450 ml Balance 450 ml IV Total 450 ml Physical Exam Gen: NAD HEENT: NC,AT Lungs: crackles lung bases Cardiac: RRR, no murmur Abd: soft, no tenderness Ext: mild edema b/l legs Neuro: no focal deficits + Lawrence draining yellow urine Labs/Diagnostic Data Labs/Diagnostic Data Laboratory Tests Test 07/03/25 12:15 07/03/25 11:00 07/03/25 04:00 07/03/25 03:03 Range/Units POC Glucose 120 H 70-106 mg/dl Hemoglobin 6.6 *L 6.0 #*L 12.2-16.2 g/dL Hematocrit 20.7 L 19.7 #L 36.0-46.0 % Urine Color Colorless Yellow Urine Clarity Turbid H Clear Urine pH 6.0 5.0-9.0 Urine Specific [place] 1.009 1.001-1.035 Urine Protein 1+ H Negative Urine Ketones Negative Negative Urine Blood 2+ H Negative /uL Urine Nitrite Negative Negative Urine Bilirubin Negative Negative Urine Urobilinogen Normal Negative mg/dL Urine Leukocyte Esterase 2+ Negative /uL Urine RBC 5 0 - 4 /hpf Urine Microscopic WBC 26 H 0-5 /HPF Urine Squamous Epithelial Cells None seen <5 /hpf Urine Bacteria Mod H None Seen /hpf Urine Glucose Normal Normal mg/dL White Blood Count 6.3 4.4-10.8 10^3/uL Red Blood Count 1.97 L 4.0-5.20 10^6/uL Mean Corpuscular Volume 100.0 80.0-100.0 fL Mean Corpuscular Hemoglobin 30.5 28.0-32.0 pg Mean Corpuscular Hemoglobin Concent 30.5 L 32.0-36.0 g/dL Red Cell Distribution Width 17.0 H 11.8-14.3 % Platelet Count 189 140-450 10^3/uL Mean Platelet Volume 9.4 6.9-10.8 fL Neutrophils (%) (Auto) 81.6 H 37.0-80.0 % Lymphocytes (%) (Auto) 5.2 L 10.0-50.0 % Monocytes (%) (Auto) 8.5 0.0-12.0 % Eosinophils (%) (Auto) 4.2 0.0-7.0 % Basophils (%) (Auto) 0.5 0.0-2.0 % Neutrophils # (Auto) 5.2 1.6-8.6 10 ^3/uL Lymphocytes # (Auto) 0.3 L 0.4-5.4 10 ^3/uL Monocytes # (Auto) 0.5 0-1.3 10 ^3/uL Eosinophils # (Auto) 0.3 0-0.8 10 ^3/uL Basophils # (Auto) 0 0-0.2 10 ^3/uL Nucleated Red Blood Cells 0.0 % Sodium Level 145 136-145 mmol/L Potassium Level 3.9 3.5-5.1 mmol/L Chloride Level 104 98-107 mmol/L Carbon Dioxide Level 32 H 20-31 mmol/L Anion Gap 9 5-15 Blood Urea Nitrogen 50 H 9-23 mg/dL Creatinine 2.02 H 0.550-1.02 mg/dL Glomerular Filtration Rate Calc 25 >90 mL/min BUN/Creatinine Ratio 24.8 H 10.0-20.0 Serum Glucose 115 H 74-106 mg/dL Calcium Level 7.6 L 8.7-10.4 mg/dL Total Bilirubin 0.2 0.2-1.0 mg/dL Aspartate Amino Transferase (AST) 14 13-40 U/L Alanine Aminotransferase (ALT) < 9 7-40 U/L Alkaline Phosphatase 68 46-116 U/L Total Protein 5.1 L 5.7-8.2 g/dL Albumin 2.6 L 3.2-4.8 g/dL Test 07/03/25 00:04 07/02/25 21:45 07/02/25 20:50 Range/Units POC Glucose 94 70-106 mg/dl Troponin I High Sensitivity 14 14 </=34 ng/L White Blood Count 7.7 4.4-10.8 10^3/uL Red Blood Count 2.55 L 4.0-5.20 10^6/uL Hemoglobin 7.9 L 12.2-16.2 g/dL Hematocrit 25.0 L 36.0-46.0 % Mean Corpuscular Volume 98.1 80.0-100.0 fL Mean Corpuscular Hemoglobin 31.1 28.0-32.0 pg Mean Corpuscular Hemoglobin Concent 31.7 L 32.0-36.0 g/dL Red Cell Distribution Width 16.4 H 11.8-14.3 % Platelet Count 227 140-450 10^3/uL Mean Platelet Volume 9.2 6.9-10.8 fL Neutrophils (%) (Auto) 84.5 H 37.0-80.0 % Lymphocytes (%) (Auto) 3.2 L 10.0-50.0 % Monocytes (%) (Auto) 7.2 0.0-12.0 % Eosinophils (%) (Auto) 4.6 0.0-7.0 % Basophils (%) (Auto) 0.5 0.0-2.0 % Neutrophils # (Auto) 6.5 1.6-8.6 10 ^3/uL Lymphocytes # (Auto) 0.2 L 0.4-5.4 10 ^3/uL Monocytes # (Auto) 0.6 0-1.3 10 ^3/uL Eosinophils # (Auto) 0.4 0-0.8 10 ^3/uL Basophils # (Auto) 0 0-0.2 10 ^3/uL Nucleated Red Blood Cells 0.0 % Prothrombin Time 11.9 H 9.3-11.8 sec Prothrombin Time INR 1.14 0.9-1.15 Activated Partial Thromboplast Time 29.3 24.5-34.5 SEC D-Dimer, Quantitative 3.98 H 0.0-0.49 mg/L FEU Sodium Level 144 136-145 mmol/L Potassium Level 4.1 3.5-5.1 mmol/L Chloride Level 102 98-107 mmol/L Carbon Dioxide Level 32 H 20-31 mmol/L Anion Gap 10 5-15 Blood Urea Nitrogen 59 H 9-23 mg/dL Creatinine 2.15 H 0.550-1.02 mg/dL Glomerular Filtration Rate Calc 23 >90 mL/min BUN/Creatinine Ratio 27.4 H 10.0-20.0 Serum Glucose 105 74-106 mg/dL Calcium Level 8.3 L 8.7-10.4 mg/dL B-Type Natriuretic Peptide 597.56 0-100 pg/mL Assessment CKD stage IV (Baseline Cr: 2.0 2.44 mg/dl) Severe acute anemia from GI bleeding Rectal bleeding Acute on Chronic CHF, ? EF Severe hypoalbuminemia Plan: GFR is at baseline at this time. compared current GFR with most recent labs obtained outpatient at [facility] Good urine output at this time Lasix as needed monitor H&H transfuse PRBC if Hb < 7 g/dl GI consult Continue Coreg 3.125 mg PO BID Daily BMP, and CBC Strict I&Os Plan discussed with: Patient, Daughter ANNEMARIE FERREIRA MD Jul 03, 2025 18:31
[2025-07-03] MEDS: ATORVASTATIN 20 MG TAB PO SCH (20:42)
[2025-07-03] MEDS: PANTOPRAZOLE 40 MG/10 ML VIAL INJ IV SCH (21:01)
[2025-07-03] MEDS: hydrALAZINE HCL 20 MG/ML VL IV PRN (21:26)
[2025-07-03] MEDS ORDERED: ATOR10TA52 PO (22:23)
[2025-07-03] MEDS ORDERED: CARV6.2551 PO (22:23)
[2025-07-03] MEDS ORDERED: ALLO100T PO (22:23)
[2025-07-03] MEDS ORDERED: HYDR100T10 PO (22:23)
[2025-07-03] MEDS ORDERED: VERA80TA4 PO (22:23)
[2025-07-03] MEDS ORDERED: SPIR25TA8 PO (22:23)
[2025-07-03] MEDS ORDERED: ALBU108A5 INH (22:23)
[2025-07-03] MEDS ORDERED: INSU1INJ3 SC (22:23)
[2025-07-03] MEDS ORDERED: COLC1CAP (22:23)
[2025-07-03] MEDS ORDERED: FURO20TA4 PO (22:23)
[2025-07-04] VITALS (38 sets, daily range): BP systolic 127–166; BP diastolic 27–97; PULSE 7–81; RESP 12–25; TEMP 98–98.9; O2SAT 90–100
--- NOTE | 2025-07-04 07:33 | DVHPN2 ---
Progress Note - Dictate Date Seen: Jul 04, 2025 Medical Necessity Reason Pt with a Central, PICC or Fol: No Subjective sleeping vital signs Vital Sign Date Time Temp Pulse Resp B/P (MAP) Pulse Ox O2 Delivery O2 Flow Rate FiO2 07/04/25 06:30 69 13 166/40 (82) 99 07/04/25 06:11 98.9 98.9 07/04/25 06:00 Nasal Cannula* 4 36 Total Intake and Output 07/03/25 07/03/25 07/04/25 15:00 23:00 07:00 Intake Total 600 ml 650 ml 1339 ml Output Total 0 ml 0 ml 1100 ml Balance 600 ml 650 ml 239 ml medications Current Medications Medications Dose Ordered Sig/Fawad Route Start Time Stop Time Status Last Admin Dose Admin Furosemide 20 mg DAILY IV 07/03/25 10:00 Carvedilol 3.125 mg Q12HR PO 07/03/25 10:00 Atorvastatin Calcium 10 mg HS PO 07/03/25 22:00 Albuterol 2.5 mg Q4HPRN PRN NEB 07/03/25 02:30 Ipratropium [place] 0.5 mg Q4HPRN PRN NEB 07/03/25 02:30 Hydralazine HCl 10 mg Q6HP PRN IV 07/03/25 02:30 07/03/25 21:26 10 MG Diagnostic Test (Pha) 1 strip ACHS 07/03/25 07:00 07/04/25 06:22 1 STRIP Insulin Human Regular ACHS SC 07/03/25 07:00 07/04/25 06:24 3 UNITS Dextrose 50 ml UD PRN IV 07/03/25 02:30 Sodium Chloride 10 ml Q8HR IV 07/03/25 06:00 07/04/25 06:22 10 ML Ondansetron HCl 4 mg Q4HP PRN IV 07/03/25 02:30 Docusate Sodium 100 mg BIDPRN PRN PO 07/03/25 02:30 Acetaminophen 650 mg Q6HP PRN PO 07/03/25 02:30 Nitroglycerin 0.4 mg Q5MINP PRN SL 07/03/25 04:00 Morphine Sulfate 2 mg Q30M PRN IV 07/03/25 04:00 Pantoprazole Sodium 40 mg BID IV 07/03/25 22:00 07/03/25 21:01 40 MG Octreotide Acetate 500 mcg/ Sodium Chloride 100 ml @ 10 mls/hr Q10H IV 07/03/25 14:45 07/04/25 01:14 10 MLS/HR objective Gen: NAD HEENT: NC,AT Lungs: crackles lung bases Cardiac: RRR, no murmur Abd: soft, no tenderness Ext: mild edema b/l legs Neuro: no focal deficits + Lawrence draining yellow urine laboratory and microbiology Laboratory Tests 07/03/25 11:00 07/03/25 03:03 Test 07/03/25 03:03 Range/Units Serum Glucose 115 H 74-106 mg/dL Assessment/Plan CKD stage IV (Baseline Cr: 2.0 2.44 mg/dl) Severe acute anemia from GI bleeding Rectal bleeding Acute on Chronic CHF, ? EF Severe hypoalbuminemia Plan: GFR is at baseline at this time. compared current GFR with most recent labs obtained outpatient at [facility] Good urine output at this time Lasix as needed monitor H&H transfuse PRBC if Hb < 7 g/dl GI consult Continue Coreg 3.125 mg PO BID Daily BMP, and CBC Strict I&Os Plan discussed with: Patient, Other CC Plasma Assessment Blood Product Administration S: [id number] ANNEMARIE FERREIRA MD Jul 04, 2025 07:33
--- NOTE | 2025-07-04 08:17 | DVH ---
Exam: CT CT AB PEL WO CON-NO ORAL OR IV History: GI bleed Comparison Study: None Technique: Multidetector spiral CT of the abdomen was performed from lung bases to pubic symphysis. I maging was performed without IV contrast. Axial, coronal and sagittal multiplanar reformats were obta ined from the axial data set by the technologist. Radiation Dose : 1. Abdomen/Pelvis: CTDIvol 27.88 mGy, DLP 1477.04 mGy*cm. Findings: Evaluation of solid organs is limited due to lack of intravenous contrast use. Lung Bases: Bilateral lower lobe atelectasis. Small left pleural effusion. Trace right pleural effusi on. Cardiomegaly. Coronary artery calcifications. Vascular calcifications of the aorta. Liver: The liver is normal in size. No focal lesions. Gallbladder and Biliary Tree: Unremarkable Spleen: Unremarkable Pancreas: The pancreas is grossly normal in appearance. Adrenal Glands: Unremarkable Kidneys: Kidneys are grossly normal without calculi or hydronephrosis. Bladder: Lawrence catheter in the urinary bladder. Grossly unremarkable for degree of distention. Bowel: The stomach is grossly normal in appearance. Colonic diverticulosis. Moderate volume colonic s tool. Small bowel and colon are normal in caliber and distribution. The appendix is not visualized; h owever, no secondary findings of acute appendicitis identified. Ascites: Absent Lymphadenopathy: No mesenteric, retroperitoneal or periportal lymphadenopathy. Abdominal Wall and Mesentery: Diffuse body wall edema. Vasculature: The visualized abdominal aorta is normal in size and caliber. Vascular calcifications of the aorta. Evaluation of abdominal and pelvic vessels is limited due to lack of intravenous contrast . Pelvic Organs: Unremarkable Musculoskeletal: Multilevel degenerative changes of the spine. No aggressive focal bony lesions, acut e fractures or dislocation. IMPRESSION: No acute abdominal or pelvic findings. Colonic diverticulosis. Small left and trace right pleural effusions. Radiation optimization: All CT scans at this facility use at least one of these dose optimization jimmie hniques: automated exposure control mA and/or kV adjustment per patient size (includes targeted exam s where dose is matched to clinical indication) or iterative reconstruction.
[2025-07-04 11:36] LABS: Hematocrit 25.8 % (36.0-46.0); Hemoglobin 8.4 g/dL (12.2-16.2); Mean Corpuscular Hemoglobin 30.9 pg (28.0-32.0); Mean Corpuscular Volume 95.1 fL (80.0-100.0); Nucleated Red Blood Cells % 0.3 %
[2025-07-04 11:52] LABS: Alkaline Phosphatase 82 U/L (46-116); Anion Gap 9 (5-15); BUN/Creatinine Ratio 28.1 (10.0-20.0); Bilirubin, Total 0.6 mg/dL (0.2-1.0); Chloride 106 mmol/L (98-107); Glucose 90 mg/dL (74-106); Potassium 4.4 mmol/L (3.5-5.1)
[2025-07-04 11:54] LABS: Alanine Aminotransferase < 9 U/L (7-40); Albumin 3.0 g/dL (3.2-4.8); Blood Urea Nitrogen 56 mg/dL (9-23); Calcium 7.8 mg/dL (8.7-10.4); Carbon Dioxide 31 mmol/L (20-31); Sodium 146 mmol/L (136-145); Total Protein 5.6 g/dL (5.7-8.2)
--- NOTE | 2025-07-04 17:49 | DVHDS2 ---
Discharge Summary Date of Admission Jul 03, 2025 at 03:49 Date of Discharge: Jul 04, 2025 Labs/Diagnostic Data: Laboratory Results Test 07/04/25 17:22 07/04/25 10:53 07/03/25 04:00 07/02/25 21:45 POC Glucose 130 mg/dl (70-106) White Blood Count 9.4 10^3/uL (4.4-10.8) Red Blood Count 2.71 10^6/uL (4.0-5.20) Hemoglobin 8.4 g/dL (12.2-16.2) Hematocrit 25.8 % (36.0-46.0) Mean Corpuscular Volume 95.1 fL (80.0-100.0) Mean Corpuscular Hemoglobin 30.9 pg (28.0-32.0) Mean Corpuscular Hemoglobin Concent 32.5 g/dL (32.0-36.0) Red Cell Distribution Width 16.7 % (11.8-14.3) Platelet Count 191 10^3/uL (140-450) Mean Platelet Volume 9.0 fL (6.9-10.8) Neutrophils (%) (Auto) 87.9 % (37.0-80.0) Lymphocytes (%) (Auto) 2.8 % (10.0-50.0) Monocytes (%) (Auto) 6.7 % (0.0-12.0) Eosinophils (%) (Auto) 2.0 % (0.0-7.0) Basophils (%) (Auto) 0.6 % (0.0-2.0) Neutrophils # (Auto) 8.3 10 ^3/uL (1.6-8.6) Lymphocytes # (Auto) 0.3 10 ^3/uL (0.4-5.4) Monocytes # (Auto) 0.6 10 ^3/uL (0-1.3) Eosinophils # (Auto) 0.2 10 ^3/uL (0-0.8) Basophils # (Auto) 0.1 10 ^3/uL (0-0.2) Nucleated Red Blood Cells 0.3 % Sodium Level 146 mmol/L (136-145) Potassium Level 4.4 mmol/L (3.5-5.1) Chloride Level 106 mmol/L (98-107) Carbon Dioxide Level 31 mmol/L (20-31) Anion Gap 9 (5-15) Blood Urea Nitrogen 56 mg/dL (9-23) Creatinine 1.99 mg/dL (0.550-1.02) Glomerular Filtration Rate Calc 25 mL/min (>90) BUN/Creatinine Ratio 28.1 (10.0-20.0) Serum Glucose 90 mg/dL (74-106) Calcium Level 7.8 mg/dL (8.7-10.4) Total Bilirubin 0.6 mg/dL (0.2-1.0) Aspartate Amino Transferase (AST) 15 U/L (13-40) Alanine Aminotransferase (ALT) < 9 U/L (7-40) Alkaline Phosphatase 82 U/L (46-116) Total Protein 5.6 g/dL (5.7-8.2) Albumin 3.0 g/dL (3.2-4.8) Urine Color Colorless (Yellow) Urine Clarity Turbid (Clear) Urine pH 6.0 (5.0-9.0) Urine Specific [place] 1.009 (1.001-1.035) Urine Protein 1+ (Negative) Urine Ketones Negative (Negative) Urine Blood 2+ /uL (Negative) Urine Nitrite Negative (Negative) Urine Bilirubin Negative (Negative) Urine Urobilinogen Normal mg/dL (Negative) Urine Leukocyte Esterase 2+ /uL (Negative) Urine RBC 5 /hpf (0 - 4) Urine Microscopic WBC 26 /HPF (0-5) Urine Squamous Epithelial Cells None seen /hpf (<5) Urine Bacteria Mod /hpf (None Seen) Urine Glucose Normal mg/dL (Normal) Troponin I High Sensitivity 14 ng/L (</=34) Test 07/02/25 20:50 Prothrombin Time 11.9 sec (9.3-11.8) Prothrombin Time INR 1.14 (0.9-1.15) Activated Partial Thromboplast Time 29.3 SEC (24.5-34.5) D-Dimer, Quantitative 3.98 mg/L FEU (0.0-0.49) B-Type Natriuretic Peptide 597.56 pg/mL (0-100) Other Laboratory Tests 07/04/25 10:53 Final Diagnosis/Problems List acute GIB Discharge Disposition: Acute Care Facility Discharge Instruct/Medications Diet: See Comment Activity: See Comment Scheduled Allopurinol (Allopurinol), 1 TAB PO DAILY, (Reported) Atorvastatin Calcium (Atorvastatin Calcium), 1 TAB PO DAILY, (Reported) Carvedilol (Carvedilol), 1 TAB PO BID, (Reported) Furosemide (Furosemide), 1 TAB PO TID, (Reported) Hydralazine Hcl (Hydralazine Hcl), 1 TAB PO TID, (Reported) Spironolactone (Spironolactone), 1 TAB PO DAILY, (Reported) Verapamil Hcl (Verapamil Hcl), 1 TAB PO TID, (Reported) Miscellaneous Medications Albuterol Sulfate (Albuterol Sulfate Hfa), INH, (Reported) Colchicine (Colchicine), (Reported) Insulin NPH Isophane & Reg (Hu (Humulin 70/30 Kwikpen (70-30) 100 Unit/ml), SC, (Reported) Discharge Statement: "Patient was advised to return to the ER or call 911 if any headaches, dizziness, shortness of breath, chest pain, abdominal pain, bleeding, fevers, or worsening of medical condition. Patient was counseled about treatment plan, medications, possible side effects, patientverbalized understanding. All questions were answered to the best of my ability. This discharge took greater then 30 minutes in planning, reviewing documentation, counseling the patient, and discussing with other team members." ASSESSMENT ASSESSMENT Assessment acute GIB Date of Service: Jul 04, 2025 Billing Provider: EMA MCKEON MD Common Visit Codes: [id number] CARE 30-74 MIN EMA MCKEON MD Jul 04, 2025 17:49
--- NOTE | 2025-07-04 21:58 | DVHPN2 ---
Progress Note - Dictate Date Seen: Jul 04, 2025 (Late entry Patient was seen at bedside at 1:00 p.m.) Medical Necessity Reason Pt with a Central, PICC or Fol: No Subjective Patient's rectal bleeding appeared to be slowing down Her repeat hemoglobin was 8.3 today There was minimal dark output from the rectal tube Patient was still anxious and somewhat agitated There was no nausea vomiting or abdominal pain She was undergoing nursing care Patient has not had any prior similar episodes and no previous EGD or colon vital signs Vital Sign Date Time Temp Pulse Resp B/P (MAP) Pulse Ox O2 Delivery O2 Flow Rate FiO2 07/04/25 18:00 70 22 152/42 (78) 94 07/04/25 17:32 Nasal Cannula* 4 36 07/04/25 15:00 98.6 98.6 Total Intake and Output 07/03/25 07/03/25 07/04/25 15:00 23:00 07:00 Intake Total 600 ml 650 ml 1349 ml Output Total 0 ml 0 ml 1100 ml Balance 600 ml 650 ml 249 ml objective Gen: NAD HEENT: NC,AT Lungs: crackles lung bases Cardiac: RRR, no murmur Abd: soft, no tenderness Ext: mild edema b/l legs Neuro: no focal deficits + Lawrence draining yellow urine laboratory and microbiology Laboratory Tests 07/04/25 10:53 Test 07/04/25 10:53 Range/Units Serum Glucose 90 74-106 mg/dL Problems(with codes): (1) COPD with acute exacerbation (2) Acute exacerbation of congestive heart failure (3) Blood loss anemia (4) [id number] kidney injury (5) Rectal bleed (6) Anemia Prognosis Assessment plan Patient had been accepted at [facility] and there was a plan for possible transfer to higher level of care that was initiated yesterday I will continue to monitor this patient with you and if the patient is not transferred I will probably schedule this patient for a possible colonoscopy after bowel prep Once again thank you for allowing me to participate in the care of this patient Plan discussed with: Patient, Other (Nurse and Dr Almeida) CC Plasma Assessment Blood Product Administration S: [id number] THAI OWENS MD Jul 04, 2025 21:58
== END 2025-07-04 18:30 | disposition short-term general hospital (02) | DRG 393 ==
LOC: EDBD 20:14 → ER 20:20 → OVERFLOW 07-03 03:49 → ICU CENTRL 07-04 00:01
PROVIDERS: ADMIT Internal Medicine; ATTEND Internal Medicine
PROC: 30233N1 Transfusion of Nonautologous Red Blood Cells into Peripheral Vein, Percutaneous Approach (ICD-10-PCS; 2025-07-03)
PROC: 30233K1 Transfusion of Nonautologous Frozen Plasma into Peripheral Vein, Percutaneous Approach (ICD-10-PCS; principal; 2025-07-04)
DX: K64.8 Other hemorrhoids (principal); I50.33 Acute on chronic diastolic (congestive) heart failure; J96.21 Acute and chronic respiratory failure with hypoxia; D62 Acute posthemorrhagic anemia; I13.2 Hypertensive heart and chronic kidney disease with heart failure and with stage 5 chronic kidney disease, or end stage renal disease; N18.4 Chronic kidney disease, stage 4 (severe); J44.1 Chronic obstructive pulmonary disease with (acute) exacerbation; N17.9 Acute kidney failure, unspecified; E88.09 Other disorders of plasma-protein metabolism, not elsewhere classified; E11.22 Type 2 diabetes mellitus with diabetic chronic kidney disease; Z88.5 Allergy status to narcotic agent; Z79.899 Other long term (current) drug therapy; Z88.1 Allergy status to other antibiotic agents
CPT/HCPCS: 36415; 71045; 74176; 78582; 80048; 80053; 81001; 82962; 83880; 84484; 85014; 85018; 85025; 85379; 85610; 85730; 86850; 86900; 86901; 86920; 87081; G0378; J1815; J2470